=== PATIENT | male | born 1970 ===

== ENCOUNTER 2018-11-17 11:24 | Emergency (ER) | payer BC, OTHER ==
[2018-11-17 11:35] VITALS: BP 159/84; RESP 18; TEMP 98.6; O2SAT 96; BMI 25.9
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
[2018-11-17] MEDS ORDERED: Naproxen 500 MG TAB PO ONE ×2 (13:39→13:49)
[2018-11-17 14:19] VITALS: PULSE 74
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
--- NOTE | 2018-11-17 18:41 | CARD ---
APPROVED REPORT Date of service: 11/17/2018 EKG Measurement Heart [id number] <Conclusion> Normal sinus rhythm Moderate voltage criteria for LVH, may be normal variant Borderline ECG
== END 2018-11-17 14:23 | disposition home or self-care (01) ==
LOC: H.ER 11:24
DX: M54.5 Low back pain (principal); R07.9 Chest pain, unspecified; M54.2 Cervicalgia; V49.40XA Driver injured in collision with unspecified motor vehicles in traffic accident, initial encounter